=== PATIENT | male | born 1985 | race Caucasian/White ===

== ENCOUNTER 2018-07-11 21:31 | Emergency (ER) | payer SELFPAY ==
[~2018-07-11] VITALS: Ht 175.3 cm; Wt 72.6 kg
[2018-07-11 21:36] VITALS: BP 132/97
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
[2018-07-11] MEDS ORDERED: MORPHINE SULFATE 4 MG/ML SYR IVP ONE ×2 (22:15→23:30)
[2018-07-11] MEDS ORDERED: MIDAZOLAM 2 MG/2 ML VIAL IVP ONE ×2 (22:35→23:30)
--- NOTE | 2018-07-11 22:59 | NUR ---
ER AT BEDSIDE
--- NOTE | 2018-07-11 23:00 | NUR ---
ER MD PROCEDURE DONE, X RAY TO COMFIRM PLACEMENT. PT TOLERATED WELL. PAIN LEVEL IS 7/10 AT THIS TIME.
--- NOTE | 2018-07-11 23:22 | NUR ---
ER MD IN FOR PROCEDURE TO BEDSIDE. PT TOLERATED WELL.
--- NOTE | 2018-07-11 23:25 | NUR ---
PT WAS GIVEN THE INFORMED CONSENT TO CONSCIOUS SEDATION. PT UNDERSTOOD THE DOCUMENT AND SIGNED. ER MADE AWARE.
[2018-07-11] MEDS ORDERED: ETOMIDATE 20 MG/10 ML VIAL IVP ONE (23:30)
--- NOTE | 2018-07-11 23:35 | NUR ---
TIME WAS IMPLEMENTED EMT, 2 RN, MD, RT PRESENT
--- NOTE | 2018-07-11 23:40 | NUR ---
SEDATION BEGAN, MEDICATION IN . PT TOLERATED WELL. VITALS STABLE. PLEASE SEE DOCUMENTATION FOR CONSCIOUS SEDATION FOR FURTHUR DOCUMENTATION.
--- NOTE | 2018-07-11 23:50 | NUR ---
PT ABLE TO SPEAK AND IS SLOWLY WAKING UP. PT PAIN LEVEL IS DOWN TO 5/10. PT IS ABLE TO MOVE ALL EXTREMETIES AND IS VERBAL. PT TOLERATED PROCEDURE WELL. ER MADE AWARE.
--- NOTE | 2018-07-11 23:52 | NUR ---
ATTENDED CONSIOUS SEDATION. PT ON 3 L NC WITH CO2 MONITORING. SPO2 100% CO2 IS 35-40. NO SOB OR DISTRESS NOTED. RN MAKENNA, MD PARAS DEY AND EMT TO AT BEDSIDE.
--- NOTE | 2018-07-12 00:25 | NUR ---
PT AWAKE AND IS A/O X 4. PT IS COMFORTABLE AT THIS TIME. PT IS HAVING SOME PAIN, BUT IS STATES IT IS MANAGEABLE. PAIN LEVEL IS 6/10 AT THIS TIME.
[2018-07-12] MEDS ORDERED: ONDANSETRON 4 MG/2 ML VIAL IVP ONE (00:40)
--- NOTE | 2018-07-12 00:48 | NUR ---
brother is at pt bedside. pt brother has questions. er md made aware. pt lying in bed, vss. pt pain level is at 6/10 at this time.
--- NOTE | 2018-07-12 00:49 | NUR ---
PT FAMILY CONTACT. FAMILY REQUESTED TO HAVE THEM CONTACTED WHEN PT GETS D/C. CLARK, [phone]
--- NOTE | 2018-07-12 01:20 | NUR ---
SLING IN PLACE, PT TOLERATED WELL.
--- NOTE | 2018-07-12 01:44 | NUR ---
PT WAS RE-EDUCATED REGARDING THE SAFETY OF BEING UNDER THE INFLUENCE IN PUBLIC AND DOING PHYSICAL ACTIVITY THAT CAN BE POTENTIALLY PHYSICALLY HARMFUL TO SELF AND OTHERS. MARCELINA FRIED MADE AWARE.
[2018-07-12 01:46] VITALS: BP 122/74
--- NOTE | 2018-07-12 01:46 | NUR ---
Patient discharged with v/s stable. Written and verbal after care instructions given and explained. Patient alert, oriented and verbalized understanding of instructions. Ambulatory with steady gait. All questions addressed prior to discharge. ID band removed. Patient advised to follow up with PMD. Rx of IBUPROFEN AND PERCOCET WAS given. Patient educated on indication of medication including possible reaction and side effects. Opportunity to ask questions provided and answered.
== END 2018-07-12 01:46 | disposition home or self-care (01) ==
LOC: MED 21:31
DX: S43.101A Unspecified dislocation of right acromioclavicular joint, initial encounter (principal); F10.10 Alcohol abuse, uncomplicated; F12.10 Cannabis abuse, uncomplicated; V00.311A Fall from snowboard, initial encounter; Y93.23 Activity, snow (alpine) (downhill) skiing, snowboarding, sledding, tobogganing and snow tubing; Y92.89 Other specified places as the place of occurrence of the external cause; Y99.8 Other external cause status
CPT/HCPCS: 23650; 73000; 73030; 96374; 96375; 99152; 99285; G0500; J2250; J2270; J2405; J3490; Q0092; 99283